=== PATIENT | female | born 1970 | race Caucasian/White ===

== ENCOUNTER 2017-09-05 09:23 | Emergency (ER) | payer OTHER ==
[2017-09-05 09:35] VITALS: TEMP 98.3; BMI 25.7
--- NOTE | 2017-09-05 09:46 | PDOC ---
History of Present Illness - General Chief Complaint: Headache Stated Complaint: BLURRED VISION, HEADACHE Time Seen by Provider: 09/05/17 09:44 - History of Present Illness Initial Comments: 09/05/17 10:10 47 yo F who presents with R eye diplopia. 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 Denies eye or facial trauma. Eye pain with onset of R sided temporal and medial canthus, sharp pain. Denies peripheral vision loss or vision loss, painful eye movement, redness, tearing, swelling, or inability to open or close eye. Also endorses intermittent R shoulder, elbow, and finger arthalgias for 2 weeks. No associated weakness, sensory changes, dizziness, lightheadedness, difficulty with ambulation. Denies N/V, F/C, CP, SOB, abdominal complaints, or urinary complaints. Denies contact or eye glass use. Past History - Past Medical History Allergies/Adverse Reactions: Allergies Allergy/AdvReac Type Severity Reaction Status Date / Time No Known Allergies Allergy Verified 09/05/17 09:29 Home Medications: Ambulatory Orders NK [No Known Home Medication] 09/05/17 COPD: No - Suicide/Smoking/Psychosocial Hx Smoking History: Never smoked Have you smoked in the past 12 months: No Information on smoking cessation initiated: No Hx Alcohol Use: No Drug/Substance Use Hx: No Substance Use Type: None Review of Systems - Review of Systems Comments:: 09/05/17 09:45 GENERAL/CONSTITUTIONAL: No fever or chills. No weakness. HEAD, EYES, EARS, NOSE AND THROAT: + change in vision. No ear pain or discharge. No sore throat.- CARDIOVASCULAR: No chest pain or shortness of breath RESPIRATORY: No cough, wheezing, or hemoptysis. GASTROINTESTINAL: No nausea, vomiting, diarrhea or constipation. GENITOURINARY: No dysuria, frequency, or change in urination. MUSCULOSKELETAL: No joint or muscle swelling or pain. No neck or back pain. SKIN: No rash NEUROLOGIC: No headache, vertigo, loss of consciousness, or change in strength/ sensation. ENDOCRINE: No increased thirst. No abnormal weight change HEMATOLOGIC/LYMPHATIC: No anemia, easy bleeding, or history of blood clots. ALLERGIC/IMMUNOLOGIC: No hives or skin allergy. *Physical Exam - Vital Signs Last Vital Signs Temp Pulse Resp BP Pulse Ox 98.3 F 49 L 18 170/90 100 09/05/17 09:30 09/05/17 09:30 09/05/17 09:30 09/05/17 09:30 09/05/17 09:30 - Physical Exam Comments: 09/05/17 09:45 GENERAL: Awake, alert, and fully oriented, in no acute distress HEAD: No signs of trauma, normocephalic, atraumatic EYES: PERRLA, EOMI, sclera anicteric, conjunctiva clear ENT: Hearing grossly normal, nares patent, oropharynx clear without Eyes: 20/20 R eye visual acuity. 20/200 L eye visual acuity. Unable to appreciate retinal artery or vessel engorgement on opthalmoscopic exam. exudates. Moist mucosa NECK: Normal ROM, supple, no lymphadenopathy, JVD, or masses LUNGS: No distress, speaks full sentences, clear to auscultation bilaterally HEART: Regular rate and rhythm, normal S1 and S2, no murmurs, rubs or gallops, peripheral pulses normal and equal bilaterally. EXTREMITIES : Normal inspection, Normal range of motion, no edema. No clubbing or cyanosis. NEUROLOGICAL: Cranial nerves II through XII grossly intact. Normal speech, normal gait, no focal sensorimotor deficits. Absent dysmetria on FTN. Absent PITO. SKIN: Warm, Dry, normal turgor, no rashes or lesions noted ED Treatment Course - LABORATORY CBC & Chemistry Diagram: 09/05/17 11:10 09/05/17 11:10 Medical Decision Making - Medical Decision Making 09/05/17 10:16 47 yo F with h/o L eye blindness who presents with acute onset of intermittent, monocular R eye diplopia and blurry vision 3 days INSURANCE CLAIMS REPRESENTATIVE. Denies eye or facial trauma. Eye pain with onset of R sided temporal and medial canthus, sharp pain. Denies peripheral vision loss or vision loss, painful eye movement, redness, tearing, swelling, or inability to open or close eye. No associated weakness, sensory changes, dizziness, lightheadedness, difficulty with ambulation. Denies N/V, F/C, CP, SOB, abdominal complaints, or urinary complaints. Denies contact or eye glass use. Physical exam with visual acuity 20/20 L eye and 20/200 R eye. EOMI, BEAU. BP~170/90, P 49. Patient currently asymptomatic. Suspected bilateral vs. mocular diplopia. Vision change most likely 2/2 HTN. Low suspicion of CVA/TIA.Pt. w/ absent focal neuro deficits. DDx: HTN emergency, Cluster HADDAD , CVA/TIA, lens dislocation, retinal detachment , temporal arteritis ED Course: CBC, CMP, Cardiac Pr UA EKG, CXR CT Head Norvasc 09/05/17 11:13 EKG: LVH with sinus bradycardia. Absent BENJY, STD, or TWI. 09/05/17 11:51 CBC, CMP: Unremarkable Trop: Neg UA: Unremarkable 09/05/17 12:38 CT HEAD: No hemorrhage, mass. Patient BP improved 159/89. Stable for d/c with return precautions. Advised to f /u at outside resident ran clinic. *DC/Admit/Observation/Transfer Diagnosis at time of Disposition: Hypertensive urgency, Diplopia - Discharge Dispostion Disposition: HOME Condition at time of disposition: Stable - Referrals Referrals: Sanjay Wick MD [Staff Physician] - - Patient Instructions Printed Discharge Instructions: DI for Visual Field Disturbances Additional Instructions: Please return to the emergency department with any new or worsening symptoms or concerns. Please follow up with primary medical physician within one week. - Post Discharge Activity - Attestations Physician Attestion: 09/05/17 12:48 I attest to the information provided in this note.
[2017-09-05] MEDS ORDERED: amLODIPine BESYLATE 5 MG TABLET (FP) PO ONE (10:47)
[2017-09-05] MEDS ORDERED: amLODIPine BESYLATE 5 MG TABLET (FP) ONE (11:06)
--- NOTE | 2017-09-05 11:11 | PDOC ---
Attending Attestation - Resident Resident Name: iCro Quevedo - ED Attending Attestation I have performed the following: I have examined & evaluated the patient, The case was reviewed & discussed with the resident, I agree w/resident's findings & plan, Exceptions are as noted - HPI HPI: 09/05/17 11:05 47-year-old female with no significant past medical history other than chronic left eye blindness presents with right eye blurry vision/double vision for 3 days. Mild associated headache, the symptoms are intermittent, sometimes noting blurry vision then double vision then even occasional loss of vision. Each episode lasts only a couple of minutes then resolves, not necessarily associated with headache. No other focal deficits, no speech changes, no cardiopulmonary complaints. - Physicial Exam PE: 09/05/17 11:07 Notably hypertensive, this is new as far as patient's concern Pupils are equal round and reactive, extraocular movements are intact. Chronic left eye blindness, right eye with 20/20 visual acuity, no diplopia on exam, normal extraocular movements. Remainder of neurological exam is normal - Medical Decision Making 09/05/17 11:07 Patient seen and evaluated with the resident. I agree with the overall evaluation, assessment, and management with the following summary of visit: 47-year-old female presents with vision disturbance over 3 days, intermittent and not associated with any other neurological deficits, but slight frontal headache. Difficult to determine whether this is true monocular versus binocular diplopia given her baseline left eye blindness, but currently has no symptoms and has a normal ocular exam. She was notably hypertensive, and this could all be related to hypertensive urgency. Check CT head Labs, EKG Dose of Norvasc for blood pressure control If above is within normal limits, can safely be discharged to follow up with her primary physician or our clinic, and to see an federal judicial law clerk. Heart Score/ECG Review #1 ECG reviewed & interpreted by me at: 11:00 General ECG Interpretation: Sinus Rhythm, Normal Rate (41), Normal Intervals ( qtc 427, LVH), No acute ischemic changes
[2017-09-05 11:18] LABS: URINE APPEARANCE CLEAR; URINE BILIRUBIN NEGATIVE (NEGATIVE); URINE BLOOD 1+ (NEGATIVE); URINE COLOR STRAW; URINE GLUCOSE (UA) NEGATIVE (NEGATIVE); URINE KETONE NEGATIVE (NEGATIVE); URINE LEUK ESTERASE NEGATIVE (NEGATIVE); URINE NITRITE NEGATIVE (NEGATIVE); URINE PROTEIN NEGATIVE (NEGATIVE); URINE UROBILINOGEN NEGATIVE mg/dL (0.2-1.0)
[2017-09-05 11:26] LABS: BASO % 0.5 % (0-2.0); EOS % 0.8 % (0-4.5); HEMATOCRIT 39.5 % (32.4-45.2); HEMOGLOBIN 12.9 GM/dL (10.7-15.3); MCH 30.2 pg (25.7-33.7); MCHC 32.8 g/dl (32.0-36.0); MEAN PLT VOLUME 10.4 fl (7.5-11.1); MONO % 7.4 % (3.8-10.2); NEUT % 60.3 % (42.8-82.8); PLATELET COUNT 204 K/MM3 (134-434); RBC 4.29 M/mm3 (3.60-5.2); RDW 13.3 % (11.6-15.6); WHITE BLOOD COUNT 7.4 K/mm3 (4.0-10.0)
[2017-09-05 11:32] LABS: ALBUMIN 3.7 g/dl (3.4-5.0); ANION GAP 8 (8-16); BLOOD UREA NITROGEN 19 mg/dL (7-18); CALCIUM 7.9 mg/dL (8.5-10.1); CHLORIDE 106 mmol/L (98-107); CO2 24 mmol/L (21-32); CREATININE 0.7 mg/dL (0.55-1.02); GLUCOSE,RANDOM 87 mg/dL (74-106); POTASSIUM 3.9 mmol/L (3.5-5.1); SGOT/AST 15 U/L (15-37); SGPT/ALT 18 U/L (12-78); SODIUM 138 mmol/L (136-145)
[2017-09-05 11:34] LABS: ALK PHOS 38 U/L (45-117); BILIRUBIN,TOTAL 0.5 mg/dL (0.2-1.0); TOT PROT 6.9 g/dl (6.4-8.2)
[2017-09-05 11:36] LABS: INR 1.02 (0.82-1.09); PROTHROMBIN TIME (PATIENT) 11.5 SEC (9.98-11.88)
[2017-09-05 11:48] LABS: EPI CELLS RARE /HPF (FEW); URINE MUCUS RARE
[2017-09-05 13:26] VITALS: BP 178/88; PULSE 46
--- NOTE | 2017-09-06 11:39 | EKG ---
Test Reason : Blood Pressure : / mmHG Vent. Rate : 041 BPM Atrial Rate : 041 BPM P-R Int : 154 ms QRS Dur : 092 ms QT Int : 518 ms P-R-T Axes : 042 002 013 degrees QTc Int : 427 ms MARKED SINUS BRADYCARDIA MINIMAL VOLTAGE CRITERIA FOR LVH, MAY BE NORMAL VARIANT ABNORMAL ECG NO PREVIOUS ECGS AVAILABLE Confirmed by RIDGE BUTTERFIELD MD ([id number]) on 09/06/2017 11:39:11 AM Referred By: Confirmed By:RIDGE BUTTERFIELD MD
== END 2017-09-05 13:00 | disposition home or self-care (01) ==
LOC: JER 09:23
PROC: 4A07X0Z Measurement of Visual Acuity, External Approach (ICD-10-PCS; principal; 2017-09-05)
DX: I16.0 Hypertensive urgency (principal); H53.2 Diplopia
CPT/HCPCS: 36415; 70450-TC; 71046-TC-FY; 80053; 81003; 81015; 85025; 85610; 85651; 93005; 93010; 99173; 99282-25

== ENCOUNTER 2020-05-22 09:19 | Emergency (ER) | payer OTHER ==
[2020-05-22 09:35] VITALS: BP 137/77; PULSE 50; TEMP 98.1; BMI 26.3
== END 2020-05-22 10:56 | disposition home or self-care (01) ==
LOC: JERFT 09:19
PROC: 0HQQXZZ Repair Finger Nail, External Approach (ICD-10-PCS; principal; 2020-05-22)
DX: S67.01XA Crushing injury of right thumb, initial encounter (principal); S60.111A Contusion of right thumb with damage to nail, initial encounter
CPT/HCPCS: 73140-TC-RT-FY; 99284-25

== ENCOUNTER 2022-03-01 09:35 | Emergency (ER) | payer OTHER ==
[2022-03-01 09:46] VITALS: BP 191/92; PULSE 72; RESP 18; TEMP 99; BMI 25.8
[2022-03-01] MEDS ORDERED: SODIUM CHLORIDE 0.9% 500 ML INFUS.BAG IV ONE (11:13)
[2022-03-01] MEDS ORDERED: KETOROLAC TROMETHAMINE 30 MG/1 ML VIAL IVPB ONE (11:14)
[2022-03-01] MEDS ORDERED: KETOROLAC TROMETHAMINE 30 MG/1 ML VIAL ONE (11:18)
[2022-03-01 11:51] LABS: BASO % 0.5 % (0-2.0); EOS % 0.4 % (0-4.5); HEMATOCRIT 41.5 % (32.4-45.2); HEMOGLOBIN 13.8 GM/dL (10.7-15.3); LYMPH % 19.8 % (8-40); MCH 30.9 pg (25.7-33.7); MCHC 33.3 g/dl (32.0-36.0); MEAN CELL VOLUME 92.8 fl (80-96); MEAN PLT VOLUME 9.9 fl (7.5-11.1); MONO % 5.6 % (3.8-10.2); NEUT % 73.7 % (42.8-82.8); PLATELET COUNT 263 10^3/uL (134-434); RBC 4.47 M/mm3 (3.60-5.2); RDW 13.9 % (11.6-15.6); WHITE BLOOD COUNT 11.4 K/mm3 (4.0-10.0)
[2022-03-01 11:54] LABS: EPI CELLS 7 /uL (0-25.1); HYALINE CASTS 0 /uL (0-3.1); URINE APPEARANCE CLEAR; URINE BACTERIA 226 /uL (0-1359); URINE BILIRUBIN NEGATIVE (NEGATIVE); URINE COLOR YELLOW; URINE GLUCOSE (UA) NEGATIVE (NEGATIVE); URINE KETONE NEGATIVE (NEGATIVE); URINE LEUK ESTERASE NEGATIVE (NEGATIVE); URINE NITRITE NEGATIVE (NEGATIVE); URINE PROTEIN NEGATIVE (NEGATIVE); URINE RBC 56 /uL (0-23.9); URINE UROBILINOGEN 0.2 mg/dL (0.2-1.0); URINE WBC 17 /uL (0-25.8)
[2022-03-01 12:09] LABS: CALCIUM 8.8 mg/dL (8.5-10.1)
[2022-03-01 12:10] LABS: ALBUMIN 3.8 g/dl (3.4-5.0)
[2022-03-01 12:12] LABS: CREATININE 0.8 mg/dL (0.55-1.3)
[2022-03-01 12:14] LABS: BILIRUBIN,TOTAL 1.2 mg/dL (0.2-1); TOT PROT 7.8 g/dl (6.4-8.2)
[2022-03-01 12:18] LABS: INR 1.02 (0.83-1.09); PROTHROMBIN TIME (PATIENT) 11.7 SEC (9.7-13.0)
[2022-03-01 12:21] LABS: ACTIVATED PTT 27.4 SECONDS (25.2-36.5)
== END 2022-03-01 12:30 | disposition left against medical advice (07) ==
LOC: JER 09:35
PROC: 3E0333Z Introduction of Anti-inflammatory into Peripheral Vein, Percutaneous Approach (ICD-10-PCS; principal; 2022-03-01)
DX: M54.50 Low back pain, unspecified (principal); M25.562 Pain in left knee
CPT/HCPCS: 36415; 71046-TC-FY; 73562-TC-LT-FY; 80053; 81003; 85025; 85610; 85730; 87086; 99285-25